=== PATIENT | female | born 1955 | race Caucasian/White ===

== ENCOUNTER 2022-09-02 10:48 | Outpatient (CLI) | payer MEDICARE ==
[2022-09-02 11:45] LABS: Hemoglobin 12.9 g/dL (12.0-15.5)
[2022-09-02 12:22] LABS: Anion Gap 11 mmol/L (10-20); BUN (Urea Nitrogen) 18 mg/dL (9.8-20.1); Calc. Creatinine Clearance 0 mL/min (70-130); Calcium 8.9 mg/dL (7.8-10.44); Carbon Dioxide 27 mmol/L (23-31); Chloride 103 mmol/L (98-107); Estimated GFR 81; Glucose 89 mg/dL (80-115); Potassium 4.4 mmol/L (3.5-5.1); Sodium 137 mmol/L (136-145)
== END 2022-09-02 10:49 | disposition home or self-care (01) ==
LOC: CSHLAB 10:48
PROVIDERS: ATTEND Otolaryngology Otolaryngic Allergy
DX: Z01.812 Encounter for preprocedural laboratory examination (principal); D49.7 Neoplasm of unspecified behavior of endocrine glands and other parts of nervous system
CPT/HCPCS: 80048; 85014; 85018

== ENCOUNTER 2022-09-07 05:28 | Day surgery (SDC) | payer MEDICARE ==
[2022-09-03 11:32] VITALS: BMI 24.5
[2022-09-07] MEDS ORDERED: Fentanyl 250 MCG/5 ML VIAL ONE (06:39)
[2022-09-07] MEDS ORDERED: PROPOFOL 40 ML ONE (06:39)
[2022-09-07] MEDS ORDERED: Dexamethasone 20 MG/5 ML VIAL ONE (06:40)
[2022-09-07] MEDS ORDERED: Lidocaine 1% PF 5 ML VIAL ONE (06:40)
[2022-09-07] MEDS ORDERED: Rocuronium Bromide 10 MG/ML (10ML VIAL) ONE (06:40)
[2022-09-07] MEDS ORDERED: Ondansetron PF 4 MG/2 ML Vial ONE (06:40)
[2022-09-07] MEDS ORDERED: PHENYLEPHRINE-NS 100 MCG/ML 10 ML SYRINGE ONE (06:41)
[2022-09-07] MEDS ORDERED: ePHEDrine Sulfate 50 MG/10 ML VIAL ONE (06:41)
[2022-09-07] MEDS ORDERED: Clindamycin/D5W 600 mg/50 ml Premix Bag ONE (06:55)
[2022-09-07] MEDS ORDERED: Glycopyrrolate 0.2 MG/ML 5 ML SYRINGE ONE (07:21)
[2022-09-07] MEDS ORDERED: Lidocaine 1% w/Epinephrine 1:100K 20 ML VIAL ONE (07:29)
[2022-09-07] MEDS ORDERED: Acetaminophen 500 MG TAB ONE (09:15)
[2022-09-07] MEDS ORDERED: Acetaminophen 500 MG TAB PO SCH (11:30)
== END 2022-09-07 09:50 | disposition home or self-care (01) ==
LOC: CSHSDC 05:28
PROVIDERS: ATTEND Otolaryngology Otolaryngic Allergy
PROC: 0GTH0ZZ Resection of Right Thyroid Gland Lobe, Open Approach (ICD-10-PCS; principal; 2022-09-07)
DX: C73 Malignant neoplasm of thyroid gland (principal); M06.9 Rheumatoid arthritis, unspecified; Z79.899 Other long term (current) drug therapy; Z88.0 Allergy status to penicillin; Z88.1 Allergy status to other antibiotic agents; Z86.79 Personal history of other diseases of the circulatory system
CPT/HCPCS: 88307; J1100; J2405; J2704; J3010; J3490

== ENCOUNTER 2025-05-28 11:23 | Outpatient (CLI) | payer MEDICARE ==
[2025-05-28 12:22] LABS: Hematocrit 37.4 % (34.9-44.5); Hemoglobin 12.2 g/dL (12.0-15.5)
[2025-05-28 12:42] LABS: Anion Gap 10 mmol/L (10-20); BUN (Urea Nitrogen) 13 mg/dL (9.8-20.1); Calc. Creatinine Clearance 0 mL/min (70-130); Calcium 9.0 mg/dL (7.8-10.44); Carbon Dioxide 28 mmol/L (23-31); Chloride 104 mmol/L (98-107); Glucose 79 mg/dL (83-110); Potassium 4.1 mmol/L (3.5-5.1); Sodium 138 mmol/L (136-145)
== END 2025-05-28 11:24 | disposition home or self-care (01) ==
LOC: CSHLAB 11:23
PROVIDERS: ATTEND Otolaryngology Otolaryngic Allergy
DX: Z01.818 Encounter for other preprocedural examination (principal); G47.33 Obstructive sleep apnea (adult) (pediatric); Z68.23 Body mass index [BMI] 23.0-23.9, adult
CPT/HCPCS: 80048; 85014; 85018; 93005; 93010